=== PATIENT | female | born 1990 | race Two or more races ===

== ENCOUNTER → 2019-09-13 | Outpatient (CLI) | payer MEDICAID ==
[~2019-09-13] MED LIST: PREN1TAB78 MT
== END | disposition home or self-care (01) ==
LOC: LAB 11:08
PROVIDERS: ATTEND Obstetrics & Gynecology
DX: Z01.818 Encounter for other preprocedural examination (principal); Z11.59 Encounter for screening for other viral diseases
CPT/HCPCS: U0003-CS

== ENCOUNTER 2019-09-17 08:49 | Inpatient (IN) | payer MEDICAID ==
[~2019-09-17] VITALS: Ht 160 cm; Wt 69.9 kg
[2019-09-17] MEDS ORDERED: DEXT 5%/LR + PITOCIN 20UNITS/L 1,000 ML IV SCH (09:54)
[2019-09-17] MEDS ORDERED: NALOXONE HCL 0.4 MG/ML 1ML VIAL IM PRN (10:00)
[2019-09-17] MEDS ORDERED: METHYLERGONOVINE MALEATE 0.2 MG/ML IM PRN (10:00)
[2019-09-17] MEDS ORDERED: CARBOPROST TROMETHAMINE 250 MCG/ML AMPUL IM PRN (10:00)
[2019-09-17 10:11] LABS: BASOPHILS % 0.3 % (0.0-2.0); EOSINOPHILS % 0.9 % (0.0-5.0); HEMATOCRIT. 37.4 % (36.0-48.0); HEMOGLOBIN. 12.9 g/dL (12.0-16.0); LYMPHOCYTES % 16.2 % (20.0-50.0); MEAN CORPUSCULAR HEMOGLOBIN 29.9 pg (28.0-32.0); MEAN CORPUSCULAR VOLUME 86.8 fL (81.0-99.0); MEAN PLATELET VOLUME 8.5 fl (7.4-10.4); MONOCYTES % 7.9 % (2.0-8.0); NEUTROPHILS % 74.7 % (40.0-76.0); PLATELET 207 x1000/uL (130-400); RED BLOOD CELL COUNT 4.31 mill/uL (4.2-5.4); RED CELL DISTRIBUTION WIDTH 13.2 % (11.6-14.6)
[2019-09-17 10:14] LABS: CLARITY URINE CLEAR (CLEAR); COLOR URINE YELLOW (YELLOW); KETONES URINE NEGATIVE (NEGATIVE); LEUKOCYTE ESTERASE URINE NEGATIVE (NEGATIVE); NITRITE URINE NEGATIVE (NEGATIVE); OCCULT BLOOD URINE 1+ (NEGATIVE); PH URINE 7.5 (4.5-8.0); PROTEIN URINE NEGATIVE (NEGATIVE); SPECIFIC GRAVITY URINE 1.008 (1.005-1.030); UROBILINOGEN URINE 0.2 E.U./dL (0.2-1.0)
[2019-09-17 10:19] LABS: INR 0.9; PARTIAL THROMBOPLASTIN TIME 27.8 sec (23.4-31.0); PROTHROMBIN TIME 9.8 sec (9.6-11.0)
[2019-09-17] MEDS: LACTATED RINGERS 1,000 ML IV SCH ×2 (10:30→10:31)
[2019-09-17] MEDS ORDERED: FENTANYL CITRATE/PF 50MCG/ML 2ML VIAL ONE (10:48)
[2019-09-17] MEDS ORDERED: CEFAZOLIN SODIUM 1000MG/VIAL ONE (10:48)
[2019-09-17] MEDS ORDERED: OXYTOCIN 10 UNITS/ML 1ML ONE (10:48)
[2019-09-17] MEDS ORDERED: MORPHINE SULFATE/PF 1MG/ML 10ML AMP ONE (10:48)
[2019-09-17] MEDS ORDERED: GLYCOPYRROLATE 0.2 MG/ML 2ML VIAL ONE (10:48)
[2019-09-17 10:52] LABS: *AMPHETAMINES SCREEN URINE NEGATIVE (NEGATIVE); *BARBITURATES SCREEN URINE NEGATIVE (NEGATIVE)
[2019-09-17 10:53] LABS: *BENZODIAZEPINES SCREEN URINE NEGATIVE (NEGATIVE); *COCAINE SCREEN URINE NEGATIVE (NEGATIVE); METHADONE URINE SCREEN NEGATIVE (NEGATIVE); OPIATES URINE SCREEN NEGATIVE (NEGATIVE)
[2019-09-17 10:54] LABS: CANNABINOID URINE SCREEN NEGATIVE (NEGATIVE); PHENCYCLIDINE URINE SCREEN NEGATIVE (NEGATIVE)
[2019-09-17] MEDS ORDERED: ONDANSETRON HCL 4MG/2ML INJ ONE (11:14)
[2019-09-17] MEDS ORDERED: CITRIC ACID/SODIUM CITRATE SOLN 30ML UDC PO NR (11:15)
[2019-09-17] MEDS ORDERED: SODIUM CHLORIDE 0.9% 10ML VIAL ONE (11:32)
[2019-09-17 11:46] LABS: HEPATITIS B SURFACE ANTIGEN NEGATIVE
[2019-09-17] MEDS ORDERED: KETOROLAC 60MG/2ML VIAL IM ONE (12:00)
[2019-09-17] MEDS ORDERED: DIPHENHYDRAMINE 50MG/ML VIAL ONE (12:00)
[2019-09-17] MEDS ORDERED: NALOXONE HCL 0.4 MG/ML 1ML VIAL IV PRN (12:30)
[2019-09-17] MEDS ORDERED: DIPHENHYDRAMINE 50MG/ML VIAL IV PRN (12:30)
[2019-09-17] MEDS ORDERED: BUTORPHANOL TARTRATE 2 MG/ML VIAL IV PRN (12:30)
[2019-09-17] MEDS ORDERED: PREN1TAB78 MT (14:17)
[2019-09-17] MEDS ORDERED: HEMORRHOIDAL SUPP PR PRN (14:30)
[2019-09-17] MEDS ORDERED: IBUPROFEN 800MG TABLET PO PRN (14:30)
[2019-09-17] MEDS ORDERED: IBUPROFEN 400MG TABLET PO PRN (14:30)
[2019-09-17] MEDS ORDERED: BISACODYL 10MG SUPP PR PRN (14:30)
[2019-09-17] MEDS ORDERED: LANOLIN OINT 7GM TUBE TOP PRN (14:30)
[2019-09-17] MEDS ORDERED: HYDROCODONE/ACETAMINOPHEN 5/325MG TABLET PO PRN (14:30)
[2019-09-17] MEDS ORDERED: DIPHENHYDRAMINE 25MG CAPSULE PO PRN (14:30)
[2019-09-17] MEDS ORDERED: ONDANSETRON HCL 4MG/2ML INJ IV PRN (14:30)
[2019-09-17] MEDS: DEXT 5%/LR + PITOCIN 20UNITS/L 1,000 ML IV SCH ×2 (14:58→22:57)
[2019-09-17 15:00] VITALS: BP 101/53
[2019-09-17 15:15] VITALS: BP 97/49
[2019-09-17 16:00] VITALS: BP 101/51
[2019-09-17] MEDS: MAGNESIUM/ALUMINUM HYDROXIDE/SIMETHICONE 30ML UDC PO SCH ×2 (17:30→20:36)
[2019-09-17] MEDS: SIMETHICONE 80MG TABLET CHEW PO SCH ×2 (17:47→20:36)
[2019-09-17] MEDS ORDERED: CEFAZOLIN 2,000 MG in DEXT 5% WATER 100 ML IV SCH (18:00)
[2019-09-17] MEDS: KETOROLAC 30MG/ML VIAL IV SCH (18:20)
[2019-09-17 20:00] VITALS: BP 99/53
[2019-09-17] MEDS: DOCUSATE SODIUM 100MG CAPSULE PO SCH (20:36)
[2019-09-18] VITALS: BP 98/51
[2019-09-18] MEDS: KETOROLAC 30MG/ML VIAL IV SCH ×2 (00:27→00:30)
[2019-09-18 04:00] VITALS: BP 99/53
[2019-09-18] MEDS: DEXT 5%/LR + PITOCIN 20UNITS/L 1,000 ML IV SCH (06:38)
[2019-09-18 08:00] VITALS: BP 106/59
[2019-09-18 08:26] LABS: BASOPHILS % 0.3 % (0.0-2.0); EOSINOPHILS % 0.5 % (0.0-5.0); HEMOGLOBIN. 11.3 g/dL (12.0-16.0); LYMPHOCYTES % 10.7 % (20.0-50.0); MEAN CORPUSCULAR HEMOGLOBIN 29.8 pg (28.0-32.0); MEAN CORPUSCULAR VOLUME 86.8 fL (81.0-99.0); MEAN PLATELET VOLUME 8.3 fl (7.4-10.4); MONOCYTES % 7.6 % (2.0-8.0); NEUTROPHILS % 80.9 % (40.0-76.0); PLATELET 171 x1000/uL (130-400); RED CELL DISTRIBUTION WIDTH 13.4 % (11.6-14.6)
[2019-09-18] MEDS: FERROUS SULFATE 325MG TABLET PO SCH (16:27)
[2019-09-18] MEDS: PRENATAL VIT/FE FUMARATE/FA TABLET PO SCH (16:27)
[2019-09-18 17:28] VITALS: BP 98/55
[2019-09-18 20:00] VITALS: BP 101/51
[2019-09-18] MEDS: MAGNESIUM/ALUMINUM HYDROXIDE/SIMETHICONE 30ML UDC PO SCH (20:51)
[2019-09-18] MEDS: SIMETHICONE 80MG TABLET CHEW PO SCH (20:52)
[2019-09-18] MEDS: DOCUSATE SODIUM 100MG CAPSULE PO SCH (20:53)
[2019-09-19] VITALS: BP 108/59
[2019-09-19 04:00] VITALS: BP 110/60
[2019-09-19] MEDS: FERROUS SULFATE 325MG TABLET PO SCH (09:35)
[2019-09-19] MEDS: MAGNESIUM/ALUMINUM HYDROXIDE/SIMETHICONE 30ML UDC PO SCH (09:35)
[2019-09-19] MEDS: PRENATAL VIT/FE FUMARATE/FA TABLET PO SCH (09:36)
[2019-09-19] MEDS: SIMETHICONE 80MG TABLET CHEW PO SCH (09:36)
[2019-09-19] MEDS ORDERED: TETANUS, DIPHTHERIA, PERTUSSIS VAC/PF 0.5ML (>7YR OLD) IM ONE (10:00)
== END 2019-09-19 13:30 | disposition home or self-care (01) | DRG 540 ==
LOC: 8 EST LDRP 08:49 → 8EST 15:05
PROVIDERS: ADMIT Obstetrics & Gynecology; ATTEND Obstetrics & Gynecology
PROC: 10D00Z1 Extraction of Products of Conception, Low, Open Approach (ICD-10-PCS; principal; 2019-09-17)
PROC: 0UT70ZZ Resection of Bilateral Fallopian Tubes, Open Approach (ICD-10-PCS; 2019-09-17)
DX: O34.211 Maternal care for low transverse scar from previous cesarean delivery (principal); Z30.2 Encounter for sterilization; Z37.0 Single live birth; Z3A.39 39 weeks gestation of pregnancy
CPT/HCPCS: 36415; 80305; 81003; 85025; 86592; 86703; 86762; 86850; 86900; 86920; 87340; 88302; 88307; 90715; J0690; J1200; J1885; J2274; J2405; J2590; J3010; J3490; J7060; J7120